=== PATIENT | female | born 1970 | race Caucasian/White ===

== ENCOUNTER 2018-07-19 14:27 | Emergency (ER) | payer BC | END 2018-07-19 18:07 | disposition home or self-care (01) | LOC: M ED 14:27 | DX: T39.312A Poisoning by propionic acid derivatives, intentional self-harm, initial encounter (principal); T51.92XA Toxic effect of unspecified alcohol, intentional self-harm, initial encounter; X58.XXXA Exposure to other specified factors, initial encounter; Y92.89 Other specified places as the place of occurrence of the external cause; Z88.5 Allergy status to narcotic agent | CPT/HCPCS: 99284 ==